=== PATIENT | male | born 1960 | race Caucasian/White ===

== ENCOUNTER 2024-03-16 13:44 | Outpatient (CLI) | payer BC | END 2024-03-16 13:45 | disposition home or self-care (01) | LOC: RAD 13:44 | PROVIDERS: ATTEND Nurse Practitioner Family | DX: M79.645 Pain in left finger(s) (principal); S62.627A Displaced fracture of middle phalanx of left little finger, initial encounter for closed fracture; S63.22 Subluxation of unspecified interphalangeal joint of finger ==